=== PATIENT | male | born 1975 | race Caucasian/White ===

== ENCOUNTER 2022-05-31 21:59 | Emergency (ER) | payer SELFPAY ==
--- NOTE | 2022-05-31 22:00 | RT.EKG_ITS ---
APPROVED REPORT Exam: Resting ECG Reason for Exam: ab/chest pain Patient Location: E HR:84 bpm ECG Measurements Heart Rate 84 AXIS GA 151 P 62 QRSd 91 QRS 68 QT 362 T 42 QTc 428 Conclusion Sinus rhythm...normal P axis, V-rate 60- 99. Sinus. Normal axis. No STEMI. I have reviewed and interpreted ECG and agree with software generated interpretation.
[2022-05-31 22:23] LABS: Abs Immature Grans 0.02 10^3/uL (0.0-0.06); Absolute Basophil Count 0.05 10^3/uL (0.0-0.2); Absolute Eosinophil Count 0.22 10^3/uL (0.0-0.7); Absolute Lymphocyte Count 3.26 10^3/uL (1.2-3.4); Absolute Monocyte Count 0.53 10^3/uL (0.1-0.8); Absolute Neutrophil Count 4.65 10^3/uL (1.2-6.7); Basophils % 0.6; Eosinophils % 2.5; HCT 45.7 % (40.0-50.0); HGB 15.5 g/dL (13.5-17.5); Immature Grans % 0.2; Lymphocytes % 37.3; MCH 29.3 pg (27.0-33.0); MCHC 33.9 % (32.0-36.0); MCV 86 fL (80-95); MPV 10.2 fL (8.0-11.0); Monocytes % 6.1; Neutrophils % 53.3; Platelet Count 255 10^3/uL (130-400); RBC 5.29 10^6/uL (4.36-5.78); RDW 12.3 % (11.8-14.1); RDW-SD 39.1 fL; WBC 8.73 10^3/uL (4.4-10.8)
[2022-05-31 22:44] LABS: ALT 38 U/L (16-63); AST 26 U/L (15-37); Albumin 4.3 g/dL (3.4-5.0); Alkaline Phosphatase 83 U/L (46-116); Anion Gap 9.3 mmol/L (3-11); BUN 16 mg/dL (7-18); Bilirubin, Total 1.6 mg/dL (0.2-1.0); CO2 26.7 mmol/L (21.0-32.0); CREATININE 0.9 mg/dL (0.70-1.30); Calcium 9.2 mg/dL (8.5-10.1); Chloride 104 mmol/L (98-107); Estimated GFR 106.01 (mL/min/1.73m2); Glucose 123 mg/dL (74-106); Lipase 77 U/L (73-393); Potassium 3.4 mmol/L (3.5-5.1); Sodium 140 mmol/L (136-145); Troponin I < 50 ng/L (<or=60)
[2022-05-31 22:54] LABS: Bilirubin Negative (Negative); Blood Trace-intact (Negative); Clarity Clear (Clear); Glucose Negative (Negative); Ketones 15 mg/dL (Negative); Leukocyte Esterase Negative (Negative); Nitrite Negative (Negative); Specific Gravity 1.015 (1.005-1.025); Urobilinogen 0.2 EU/dL (Up TO 0.2)
[2022-05-31 23:00] LABS: Epithelial Cells Few HPF (Negative); RBC 0-2 HPF (0-2); WBC Negative HPF (0-5)
[2022-05-31 23:01] LABS: Bacteria Negative HPF (Negative); C & S Indicated? No; Casts Negative LPF (Negative); Crystals Negative HPF (Negative); Mucus Negative (Negative); Other Cells Negative (Negative)
[2022-05-31 23:07] VITALS: BP 126/92; PULSE 89; RESP 15; O2SAT 96
[2022-05-31 23:08] VITALS: PULSE 78; RESP 12; O2SAT 95
[2022-05-31 23:10] VITALS: PULSE 81; RESP 17; O2SAT 95
--- NOTE | 2022-05-31 23:15 | ED.GENADUL_ITS ---
Discharge Plan Disposition Patient Disposition: Home Condition: Stable Discharge Details Clinical Impression: Acute epigastric pain Primary Care Provider: Unknown,Unknown ED Provider: Rema Pino Home Meds and New Rx's Prescriptions: New sucralfate [Carafate] 1 gram tablet 1 g PO BID Qty: 60 0RF potassium chloride 20 mEq tablet,ER particles/crystals 20 meq PO DAILY Qty: 10 0RF Discharge Instructions Instructions: Diet for Stomach Ulcers and Gastritis (ED), Abdominal Pain (ED) Additional Instructions: Start taking Prilosec and Carafate, if you have gastritis or an ulcer this will help your symptoms Establish care with a primary care physician We talked about performing imaging of your abdomen today, you have declined but I do recommend close outpatient reassessment Thus eliciting a diet which may help your symptoms Please be reevaluated at your earliest ability with persistent pain or should he have new or worsening complaints including fever, chills, nausea, vomiting, or with any new or worsening complaints Discharge Data Discharge Date/Time-TO BE ENTERED AT DEPARTURE: 05/31/22 23:43 Medical Decision Making 46-year-old male who presents with abdominal pain for the past several weeks Secondary to age and clinical exam ordered CT abdomen pelvis and diagnostic blood work Patient prefers to avoid radiation and is declining CT scan at this time Has labs display mildly elevated bilirubin at 1.6 without comparison although suspect Guilbert's, patient has no right upper quadrant tenderness Mild hypokalemia, 3.4, also has potassium in the outpatient setting Patient is aware he is not been fully evaluated and he recommends CT scan, he prefers to wait until he arrives home tomorrow and will have imaging at his discretion tomorrow HPI General Date/Time Provider Initiated Documentation: 05/31/22 22:10 . HPI Narrative: This 46-year-old gentleman presents with abdominal pain for the past 5 days, hx of similar pain, likely an acute exacerbation of chronic symptoms per pt. He has had intermittent nausea without vomiting. He states is been going on for the past several weeks. Describes the pain as a burning sensation. He denies any fever or chills. He denies any urinary symptoms. Related Data Home Medications Medication Instructions Recorded Confirmed potassium chloride 20 mEq 20 meq PO DAILY #10 tabs 05/31/22 tablet,extended release(part/cryst) sucralfate 1 gram tablet (Carafate) 1 g PO BID #60 tabs 05/31/22 Previous Rx's Medication Instructions Recorded potassium chloride 20 mEq 20 meq PO DAILY #10 tabs 05/31/22 tablet,extended release(part/cryst) sucralfate 1 gram tablet (Carafate) 1 g PO BID #60 tabs 05/31/22 Allergies Allergy/AdvReac Type Severity Reaction Status Date / Time No Known Allergies Allergy Unverified 05/31/22 22:13 General Stated Complaint: Abd Prob JAYMIE: 3 PFSH All Active Problems (Updated 05/31/22 @ 23:12 by MARIA Villegas) Acute epigastric pain (Acute) Social History Smoking/Tobacco Use Status: Never Smoking risk assessment performed?: Yes Substance use type: does not use Exam Const Other: Alert and oriented, no acute distress, no pallor, moist mucous membranes, mild left upper quadrant and left lower quadrant tenderness on assessment, no rebound or guarding, no abdominal bruit or pulsatile mass, no CVA tenderness, distal pulses intact, no respiratory distress, rate regular Course Vital Signs Vital signs: Vital Signs Pulse 89 05/31/22 23:07 Respiratory Rate 15 05/31/22 23:07 Blood Pressure 126/92 H 05/31/22 23:07 Pulse Oximetry 96 05/31/22 23:07 Pulse 89 05/31/22 23:07 Pulse 81 05/31/22 23:10 Respiratory Rate 17 05/31/22 23:10 Respiratory Effort 05/31/22 22:09 Blood Pressure 126/92 H 05/31/22 23:07 Blood Pressure Mean 97 05/31/22 23:07 Pulse Oximetry 95 05/31/22 23:10 Pain Level 8 05/31/22 22:09 Lab/Test Results Lab/Test Results: Laboratory Tests Range/Units 05/31/22 05/31/22 05/31/22 22:18 22:18 22:50 WBC (4.4-10.8) 10^3/uL 8.73 RBC (4.36-5.78) 10^6/uL 5.29 Hgb (13.5-17.5) g/dL 15.5 Hct (40.0-50.0) % 45.7 MCV (80-95) fL 86 MCH (27.0-33.0) pg 29.3 MCHC (32.0-36.0) % 33.9 RDW (11.8-14.1) % 12.3 Plt Count (130-400) 10^3/uL 255 MPV (8.0-11.0) fL 10.2 Immature Gran % 0.2 Neutrophils % 53.3 Lymphocytes % 37.3 Monocytes % 6.1 Eosinophils % 2.5 Basophils % 0.6 Nucleated RBC % (0.0-0.3) % 0.0 Absolute Neutrophils (1.2-6.7) 10^3/uL 4.65 Absolute Lymphocytes (1.2-3.4) 10^3/uL 3.26 Absolute Monocytes (0.1-0.8) 10^3/uL 0.53 Absolute Eosinophils (0.0-0.7) 10^3/uL 0.22 Absolute Basophils (0.0-0.2) 10^3/uL 0.05 Sodium (136-145) mmol/L 140 Potassium (3.5-5.1) mmol/L 3.4 L Chloride (98-107) mmol/L 104 Carbon Dioxide (21.0-32.0) mmol/L 26.7 Anion Gap (3-11) mmol/L 9.3 BUN (7-18) mg/dL 16 Creatinine (0.70-1.30) mg/dL 0.9 Est GFR (CKD-EPI 2020) (mL/min/1.73m2) 106.01 Glucose (74-106) mg/dL 123 H Calcium (8.5-10.1) mg/dL 9.2 Total Bilirubin (0.2-1.0) mg/dL 1.6 H AST (15-37) U/L 26 ALT (16-63) U/L 38 Alkaline Phosphatase (46-116) U/L 83 Troponin I (<or=60) ng/L < 50 Total Protein (6.4-8.2) g/dL 8.0 Albumin (3.4-5.0) g/dL 4.3 Lipase (73-393) U/L 77 Urine Color (Yellow) Yellow Urine Clarity (Clear) Clear Urine pH (5-8) 7.0 Ur Specific [place] (1.005-1.025) 1.015 Urine Protein (Negative) mg/dL Negative Urine Ketones (Negative) mg/dL 15 H Urine Blood (Negative) Trace-intact H Urine Nitrite (Negative) Negative Urine Bilirubin (Negative) Negative Urine Urobilinogen (Up TO 0.2) EU/dL 0.2 Ur Leukocyte Esterase (Negative) Negative Urine RBC (0-2) HPF 0-2 Urine WBC (0-5) HPF Negative Ur Epithelial Cells (Negative) HPF Few Urine Crystals (Negative) HPF Negative Urine Bacteria (Negative) HPF Negative Urine Casts (Negative) LPF Negative Urine Mucus (Negative) Negative Urine Other (Negative) Negative Ur Culture Indicated? No Urine Glucose (Negative) mg/dL Negative
[2022-05-31 23:16] VITALS: BP 144/91; PULSE 79; RESP 13; O2SAT 95
[2022-05-31 23:20] VITALS: PULSE 106; RESP 21
[2022-05-31 23:45] VITALS: BP 144/91; PULSE 79; RESP 21; O2SAT 95
== END 2022-05-31 23:43 | disposition home or self-care (01) ==
PROVIDERS: Emergency Provider Physician Assistant
DX: R10.13 Epigastric pain (principal); E80.7 Disorder of bilirubin metabolism, unspecified; E87.6 Hypokalemia; R10.812 Left upper quadrant abdominal tenderness; R10.814 Left lower quadrant abdominal tenderness
CPT/HCPCS: 80053; 83690; 93005; 99283; 81003; 81015; 84484; 85025; 93010